=== PATIENT | male | born 1990 | race Two or more races ===

== ENCOUNTER 2017-10-15 20:10 | Emergency (ER) | payer MEDICAID, OTHER ==
[~2017-10-15] VITALS: Ht 172.7 cm; Wt 63.5 kg
[2017-10-15 20:36] VITALS: BP 176/90
== END 2017-10-15 21:20 | disposition left against medical advice (07) ==
LOC: EDBD 20:10 → ER 20:32
DX: F10.10 Alcohol abuse, uncomplicated (principal); Z53.21 Procedure and treatment not carried out due to patient leaving prior to being seen by health care provider